=== PATIENT | male | born 1980 | race Caucasian/White ===

== ENCOUNTER 2019-07-08 17:41 | Emergency (ER) | payer OTHER, SELFPAY ==
[2019-07-08 17:42] VITALS: BP 162/101; PULSE 89; RESP 20; TEMP 37.3; O2SAT 97; BMI 29.1
--- NOTE | 2019-07-08 18:17 | ED.DEP ---
ED Disposition - Plan for ED Patient: Instructions: Dental Pain Prescriptions: Naproxen [Naprosyn] 500 mg PO BID PRN #20 tablet Penicillin V Potassium 500 mg PO 4X/DAY #40 tablet Referrals: Yenni Gamino MD [Primary Care Provider] - Byron Scott MD [NON-STAFF] -
--- NOTE | 2019-07-08 18:20 | ED.VISSUMM ---
- ER Visit Summary Date of Service: 07/08/19 Chief Complaint: Dental pain History of Present Illness: The patient is a 39 M presenting with dental pain. Patient states this started on Wednesday. He does not currently have a dentist. He has tried ibuprofen and Tylenol at home. He has swelling of the left side of his face. He denies fever. Denies other complaints. Physical Examination: Vitals are stable. Patient is afebrile. Alert no acute distress. HEENT exam widespread dental decay. No areas of fluctuance. Tenderness left upper molar. No sublingual edema. Neck is supple. Lungs are clear and equal bilaterally. Heart is regular rate and rhythm. Skin is warm and dry. No focal neurologic deficit. Remainder of exam is unremarkable. Emergency Department Course and Treatment: Patient was given [place] x1. He is given prescription for Naprosyn and penicillin. Advised to follow-up with dentist. He is given dental referral list. Advised return to ED for worsening complaints. Disposition: Discharge home Impression: Odontalgia This note was generated with [employer] dictation software. It may contain incorrect words, spelling, and punctuation that were not noted in review of the chart prior to signing ED Disposition - Plan for ED Patient: Instructions: Dental Pain Prescriptions: Naproxen [Naprosyn] 500 mg PO BID PRN #20 tab Prescription Printed Penicillin V Potassium 500 mg PO 4X/DAY #40 tab Prescription Printed Referrals: Byron Scott MD [NON-STAFF] - Yenni Gamino MD [Primary Care Provider] -
[2019-07-08] MEDS: HYDROcodone Bitartrate/Apap 5/325 Tablet PO (18:23)
[2019-07-08] MEDS: Penicillin Vk 250 MG Tablet 500 MG PO (18:23)
[2019-07-08 18:27] VITALS: BP 153/103; PULSE 69; RESP 18; O2SAT 96
== END 2019-07-08 18:58 | disposition home or self-care (01) ==
LOC: ED 18:41
PROVIDERS: Emergency Provider Emergency Medicine
DX: K08.89 Other specified disorders of teeth and supporting structures (principal); Z72.0 Tobacco use
CPT/HCPCS: 99283

== ENCOUNTER → 2024-01-04 | Outpatient (CLI) | payer MEDICAID, SELFPAY ==
[2024-01-04 18:05] LABS: Absolute Lymphocyte Count 2.97 X10^3/uL (0.83-4.51); Absolute Neutrophil Count 7.1 X10^3/uL (2.0-7.7); Basophil% 0.9 % (0-1); Eosinophil# 0.23 X10^3/uL; Hematocrit 46.4 % (40-54); Hemoglobin 15.5 g/dL (13.0-16.5); Lymphocyte # 2.97 X10^3/ul (0.83-4.51); Lymphocyte % 26.3 % (19-41); Mean Corp Hgb Conc 33.4 g/dL (32-36); Mean Corpuscular Hgb 30.2 pg (27.0-32.0); Mean Corpuscular Volume 90.4 fL (80-94); Mean Platelet Vol. 10.2 fl (6.2-12.0); NRBC Flagged by Analyzer 0 % (0-5); Neutrophil # 7.06 X10^3/uL (2.7-7.7); Neutrophil % 62.4 % (47-70); Platelet Count 278 K/mm3 (150-450); RBC Distribution Width CV 13.2 % (11.6-14.6); RBC Distribution Width SD 43.9 fl (35.1-43.9); Red Blood Count 5.13 M/mm3 (4.6-6.2); White Blood Count 11.3 K/mm3 (4.4-11.0)
[2024-01-04 18:31] LABS: ALB/GLOB Ratio 1.2 RATIO (0.9-2.4); AST(SGOT) 38 U/L (15-37); Alanine Aminotransfer ALT/SGPT 96 U/L (16-61); Albumin, Serum 4.2 g/dL (3.2-5.0); Alkaline Phosphatase 73 U/L (45-117); Anion Gap 6 (5-15); BUN 9 mg/dL (7-18); BUN/Creat Ratio 9.8 RATIO (10-20); Calcium,Total 9.1 mg/dL (8.5-10.1); Chloride 108 mmol/L (98-107); Creatinine, Serum 0.92 mg/dL (0.70-1.30); EST Glomerular Filtration Rate 95 mL/min (>60); Est Glom Filt Rate - Afr Amer 114 mL/min (>60); Globulin 3.6 g/dL (2.2-4.2); Glucose 112 mg/dL (74-106); Protein, Total 7.8 g/dL (6.4-8.2); Sodium Level 139 mmol/L (136-145)
[2024-01-04 19:49] LABS: Hepatitis B Surface Antigen Non-Reactive (Nonreactive); Hepatitis C Antibody Non-Reactive (Nonreactive)
--- OUTSIDE RECORDS SUMMARY | 2024-01-05 02:10 | XMS RPT_ITS | CCD ---
Author Name Unknown Address [address] [place] [address] Organization [facility] Care Team Providers Care Storage Facility Housekeeper Name Role Phone MAST JONY, ROSAS Primary Care Physician ([phone]) ROSAS VÁZQUEZ Attending Unavailabl e MAST JONY, ROSAS Primary Care Unavailabl e Medications Current Medications Medication Drug Class(es) Dates Sig (Normalized) Sig (Original) acetaminophen 325 mg oral capsule (1 source) Start: 07-12-2019 Tylenol 325 mg oral capsule Dose : 650 mg =, Oral, q4h, PRN Pain, scale 1-3, 0 Refill(s) Start Date: 07/12/19 Status: Ordered diclofenac sodium 75 mg delayed release oral tablet (1 source) Nonsteroidal Anti-inflammatory Drug Start: 09-01-2023 diclofenac sodium 75 mg oral delayed release tablet Dose : 75 mg = 1 tab(s), Oral, BID, # 60 tab(s), 1 Refill(s), Pharmacy: [id number], Knee pain Shoulder pain, 184.5, cm, 09/01/23 13:31:00 EST, Height, kg, 09/01/23 13:31:00 EST, Dosing Weight Start Date: 09/01/23 Status: Ordered losartan potassium 50 mg oral tablet (1 source) Angiotensin 2 Receptor Brittanie Start: 09-01-2023 losartan 50 mg oral tablet Dose : 50 mg = 1 tab(s), Oral, qDay, # 30 tab(s), 0 Refill(s), Pharmacy: [id number], Hypertension, 184.5, cm, 09/01/23 13:31:00 EST, Height, kg, 09/01/23 13:31:00 EST, Dosing Weight Start Date: 09/01/23 Status: Ordered Problems Problem Classification Problem Date Documented Da te Episodic/Chronic Anxiety disorders (1 source) Social phobia 07-20-2019 Chronic Essential hypertension (2 sources) Essential hypertension; Translations: [Essential (primary) hypertension] Chronic Mood disorders (1 source) Depression 07-20-2019 Chronic Mycoses (1 source) Onychomycosis 09-01-2023 Episodic Other bone disease and musculoskeletal deformities (1 source) Shoulder girdle weakness 09-01-2023 Episodic Other inflammatory condition of skin (2 sources) Psoriasis; Translations: [Psoriasis, unspecified] Chronic Other non-traumatic joint disorders (1 source) Shoulder pain 09-01-2023 Episodic Residual codes; unclassified (1 source) FH: Blood disorder; Translations: [Family history of diseases of the blood and blood-forming organs and certain disorders involving the immune mechanism] Episodic Substance-related disorders (1 source) Nicotine dependence 09-01-2023 Chronic Unclassified (1 source) Pain of knee region 09-01-2023 Unclassified (1 source) Patient encounter status 09-01-2023 Viral infection (1 source) Verruca plantaris 09-01-2023 Episodic Results Test Name Value Interpretation Reference Range Facil ity Encounters Encounter Date Encounter Type Care Provider Facility Start: 09-01-2023 End: 09-02-2023 ambulatory 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 Facility:[facility] Start: 09-01-2023 End: 09-01-2023 Patient encounter procedure 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 [facility] Procedures Date Procedure Procedure Detail Performing Clinician Start: 01-16-2015 Arthroscopic knee operation 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 Immunizations Immunization Date Immunization Notes Care Provider Luan rey 09-25-2021 SARS-CoV-2 (COVID-19 ) Ad26 vaccine, recombinant 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 Marti [facility] Payers Date Payer Category Payer Unknown [id number] 1980 Unknown [id number] Social History Date Type Detail Facility Start: 09-01-2023 Tobacco smoking status Heavy t obacco smoker (finding) [facility] [place] [facility] Sex Assigned At Sex [facility] Hospital Evaluation + Plan note Note Date & Type Note Facility Evaluation + Plan note Future Appointments Appointment Date:09/14/2023 02:45:00 PM Scheduled Provider: Location:[facility] Appointment Type:PC Nurse BP Check Appointment Date:12/01/2023 03:00:00 PM Scheduled Provider:ROSAS MENDEZ Location:[facility] Appointment Type:PC [facility] Hospital course Narrative Note Date & Type Note Facility Hospital course Narrative No data available for this section [facility] Hospital Discharge instructions Note Date & Type Note Facility Hospital Discharge instructions No data available for this section [facility] Progress note Note Date & Type Note Facility Progress note No data available for this section [facility] Summary Purpose Family History No Family History Records Found No data available for this section No Family History Records Found Advance Directives No Advanced Directives Records FoundNo Advanced Directives Records Found Additional Source Comments (unrecognized sect ion and content) No Status Records FoundNo Status Records Found INFORMATION SOURCE (unrecogn ized section and content) DATE CREATED AUTHOR AUTHOR'S ORGANIZ ATION 09/03/2023 [facility] ([place]) Patient Care team informatio n (unrecognized section and content) Care Team Personnel Name: ROSAS MENDEZ Position: P4 [employer] Technical Specialist Member Role: Primary Care Physician Address: Address: [address] [place] [address] [place] [address]- [place] Care Team Related Persons Name: BRIAN WARD FOR RECORDS PERTAINING TO PATIENTS WHO ARE OR HAVE BEEN ENROLLED IN A CHEMICAL DEPENDENCY/SUBSTANCEABUSE PROGRAM, SOME INFORMATION MAY BE OMITTED. This clinical summary was aggregated from multiple sources. Caution should be exercised in using it in the provision of clinical care. This summary normalizes information from multiple sources, and as a consequence, information in this document may materially change the coding, format and clinical context of patient data. In addition, data may be omitted in some cases. CLINICAL DECISIONS SHOULD BE BASED ON THE PRIMARY CLINICAL RECORDS. [employer] [facility]. provides no warranty or guarantee of the accuracy or completeness of information in this document.
[2024-01-06 12:09] LABS: Hepatitis B Core Ab Total Negative (Negative); QNTFERON TB Mitogen Value > 10.00 IU/mL (.); QNTFERON TB Nil Value 0 IU/mL (.); QNTFERON TB1+ Ag Value 0.01 IU/mL (.); QNTFERON TB2+ Ag Value 0 IU/mL (.); QNTIFERON TB Positive Criteria Negative (Negative)
== END | disposition home or self-care (01) ==
LOC: MTLAB 15:15
PROVIDERS: Referring Provider Physician Assistant Medical; Visit Provider Physician Assistant Medical
DX: L40.0 Psoriasis vulgaris (principal); L40.59 Other psoriatic arthropathy; F17.200 Nicotine dependence, unspecified, uncomplicated; Z79.899 Other long term (current) drug therapy
CPT/HCPCS: 36415; 80053; 85025; 86480; 86704; 86708; 86709; 86803; 87340